=== PATIENT | male | born 1950 | race Caucasian/White ===

== ENCOUNTER 2020-10-03 10:02 | Day surgery (SDC) | payer MEDICARE, BC ==
[~2020-10-03] VITALS: Ht 172.7 cm; Wt 59.9 kg
[~2020-10-03 10:02] MED LIST: LISI20 PO; OXYACE5T PO; ROSU5 PO; SILD25T PO; WARF1 PO; XARELTO20 MG PO; [UNRECOGNIZED DRUG - OTHER]
== END 2020-10-03 13:35 | disposition home or self-care (01) ==
LOC: ORSCSDS 10:02
PROVIDERS: Orthopaedic Surgery
PROC: 0JNK0ZZ Release Left Hand Subcutaneous Tissue and Fascia, Open Approach (ICD-10-PCS; principal; 2020-10-03 11:30)
PROC: 0LN80ZZ Release Left Hand Tendon, Open Approach (ICD-10-PCS; principal; 2020-10-03 11:30)
DX: M72.0 Palmar fascial fibromatosis [Dupuytren] (principal); I10 Essential (primary) hypertension; I73.00 Raynaud's syndrome without gangrene; Z79.01 Long term (current) use of anticoagulants; Z79.899 Other long term (current) drug therapy
CPT/HCPCS: 88304; J0171; J0690; J1100; J2250; J2370; J2405; J2704; J3010; J7120

== ENCOUNTER 2021-03-09 20:14 | Observation (INO) | payer MEDICARE, BC ==
[~2021-03-09] VITALS: Ht 172.7 cm; Wt 60.1 kg
[2021-03-09] MEDS ORDERED: XARELTO20 M1 PO (20:39)
[2021-03-09] MEDS ORDERED: ASPIR 8181 M1 PO (20:40)
[2021-03-09] MEDS ORDERED: PLAVIX75 MG PO (20:40)
[2021-03-09 20:44] LABS: BASOPHILS ABSOLUTE AUTO 0.06 K/mm3 (0.00-0.23); BASOPHILS PERCENT AUTO 1 % (0-2); EOSINOPHILS ABSOLUTE AUTO 0.21 K/mm3 (0.00-0.68); EOSINOPHILS PERCENT AUTO 4 % (0-6); Hematocrit 19.2 % (37.0-53.0); IMMATURE GRAN ABSOLUTE AUTO 0.02 K/mm3 (0.00-0.10); IMMATURE GRAN PERCENT AUTO 0 % (0-1); LYMPHOCYTES ABSOLUTE AUTO 1.08 K/mm3 (0.84-5.20); LYMPHOCYTES PERCENT AUTO 22 % (21-46); MONOCYTES ABSOLUTE AUTO 0.49 K/mm3 (0.16-1.47); MONOCYTES PERCENT AUTO 10 % (4-13); Mean Corpuscular HGB 28.3 pg (26.0-34.0); Mean Corpuscular HGB Conc 31.3 g/dL (31.5-36.5); Mean Corpuscular Volume 91 fL (80-100); NEUTROPHILS PERCENT AUTO 63 % (41-73); Platelet Count 271 K/mm3 (150-400); RDW Coefficient Variation 14.1 % (11.7-14.2); RDW Standard Deviation 46.5 fL (35.1-46.3); Red Blood Cell Count 2.12 M/mm3 (4.30-5.90); White Blood Cell Count 4.96 K/mm3 (4.00-11.30)
[2021-03-09 21:03] LABS: Alanine Aminotransfer (ALT/SGP 32 U/L (12-78); Albumin, Blood 2.6 g/dL (3.4-5.0); Albumin/Globulin Ratio 0.9 (0.8-1.8); Alk Phos 43 U/L (50-136); Anion Gap 6 mmol/L (6-16); Aspartate Aminotrans (AST/SGOT 15 U/L (12-37); Bilirubin, Total 0.1 mg/dL (0.1-1.0); Blood Urea Nitrogen 32 mg/dL (8-24); Bun/Creatinine Ratio 32.1 (12.0-20.0); CO2, Blood 26 mmol/L (21-32); Calcium, Blood 7.7 mg/dL (8.5-10.1); Chloride, Blood 105 mmol/L (98-108); Glomerular Filtration Rate >60 (60-); Glucose, Blood 133 mg/dL (70-99); Potassium, Blood 3.6 mmol/L (3.5-5.5); Sodium, Blood 137 mmol/L (136-145); Total Protein, Blood 5.6 g/dL (6.4-8.2); Troponin I <0.015 ng/mL (0.000-0.040)
--- NOTE | 2021-03-10 05:32 | NUR ---
SUMMARY PT ARRIVED TO FLOOR IN NO DISTRESS. PT WAS RECIEVING BLOOD WHEN HE ARRIVED TO ROOM. PT DENIES DIZZINESS OR WEAKNESS. PT RECIEVED SECOND UNIT OF BLOOD W/ OUT ISSUE. PT CURRENTLY SLEEPING IN NO DISTRESS.
[2021-03-10 06:10] LABS: BASOPHILS ABSOLUTE AUTO 0.08 K/mm3 (0.00-0.23); BASOPHILS PERCENT AUTO 1 % (0-2); EOSINOPHILS ABSOLUTE AUTO 0.26 K/mm3 (0.00-0.68); EOSINOPHILS PERCENT AUTO 4 % (0-6); Hematocrit 26.1 % (37.0-53.0); Hemoglobin 8.5 g/dL (13.5-17.5); IMMATURE GRAN ABSOLUTE AUTO 0.03 K/mm3 (0.00-0.10); IMMATURE GRAN PERCENT AUTO 1 % (0-1); LYMPHOCYTES ABSOLUTE AUTO 1.09 K/mm3 (0.84-5.20); LYMPHOCYTES PERCENT AUTO 17 % (21-46); MONOCYTES ABSOLUTE AUTO 0.55 K/mm3 (0.16-1.47); MONOCYTES PERCENT AUTO 8 % (4-13); Mean Corpuscular HGB Conc 32.6 g/dL (31.5-36.5); Mean Corpuscular Volume 89 fL (80-100); Mean Platelet Volume 9.3 fL (9.1-12.4); NEUTROPHILS ABSOLUTE AUTO 4.61 K/mm3 (1.96-9.15); NEUTROPHILS PERCENT AUTO 70 % (41-73); Platelet Count 260 K/mm3 (150-400); RDW Coefficient Variation 14.1 % (11.7-14.2); RDW Standard Deviation 46.2 fL (35.1-46.3); Red Blood Cell Count 2.93 M/mm3 (4.30-5.90); White Blood Cell Count 6.62 K/mm3 (4.00-11.30)
[2021-03-10 06:25] LABS: Anion Gap 4 mmol/L (6-16); Blood Urea Nitrogen 24 mg/dL (8-24); Bun/Creatinine Ratio 23.1 (12.0-20.0); CO2, Blood 25 mmol/L (21-32); Calcium, Blood 7.8 mg/dL (8.5-10.1); Chloride, Blood 110 mmol/L (98-108); Creatinine, Blood 1.04 mg/dL (0.60-1.20); Glomerular Filtration Rate >60 (60-); Glucose, Blood 107 mg/dL (70-99); Potassium, Blood 4.2 mmol/L (3.5-5.5); Sodium, Blood 139 mmol/L (136-145)
--- NOTE | 2021-03-10 14:57 | NUR ---
ADMIT: 03/09/21 DISCHARGE: TBD DX: GI Hemorrhage CC: TwanChirag LeblancRESIDENCE: Home - [id number] [place] [id number]: None listed on HIPAADX: See listDME: NoneCCM: None HOME HEALTH: None Update 03/10/21: Pt. scheduled for hospital F/U appointment on 03/17/21. Per chart review with Dr. Yoon, pt. likely to discharge within the next 24-48 hours.
[2021-03-10 15:42] LABS: BASOPHILS ABSOLUTE AUTO 0.06 K/mm3 (0.00-0.23); BASOPHILS PERCENT AUTO 1 % (0-2); EOSINOPHILS ABSOLUTE AUTO 0.24 K/mm3 (0.00-0.68); EOSINOPHILS PERCENT AUTO 4 % (0-6); Hematocrit 28.4 % (37.0-53.0); Hemoglobin 9.2 g/dL (13.5-17.5); IMMATURE GRAN ABSOLUTE AUTO 0.03 K/mm3 (0.00-0.10); IMMATURE GRAN PERCENT AUTO 1 % (0-1); LYMPHOCYTES ABSOLUTE AUTO 1.07 K/mm3 (0.84-5.20); LYMPHOCYTES PERCENT AUTO 17 % (21-46); MONOCYTES ABSOLUTE AUTO 0.51 K/mm3 (0.16-1.47); MONOCYTES PERCENT AUTO 8 % (4-13); Mean Corpuscular HGB 28.8 pg (26.0-34.0); Mean Corpuscular HGB Conc 32.4 g/dL (31.5-36.5); Mean Corpuscular Volume 89 fL (80-100); Mean Platelet Volume 9.3 fL (9.1-12.4); NEUTROPHILS ABSOLUTE AUTO 4.29 K/mm3 (1.96-9.15); NEUTROPHILS PERCENT AUTO 69 % (41-73); Platelet Count 282 K/mm3 (150-400); RDW Coefficient Variation 14.6 % (11.7-14.2); RDW Standard Deviation 46.7 fL (35.1-46.3)
--- NOTE | 2021-03-10 19:43 | NUR ---
a+o, no s/sx of gi bleed, no bloody stool during shift, call light in reach, diet changed to full liquids at the end of shift, bsr shared with noc nurse and pt, iv flushed and locked during shift report
--- NOTE | 2021-03-11 04:59 | NUR ---
SHIFT SUMMARY ASSUMED CARE OF PT AT 1900. PT IS A/OX4. HEART SOUNDS REGULAR, LUNG SOUNDS CLEAR. PT HAS NO NEW COMPLAINTS. PT USED URINAL T/O THE NIGHT. CALL LIGHT IN REACH, BED IN LOWEST POSTITION.
[2021-03-11 09:13] LABS: BASOPHILS ABSOLUTE AUTO 0.07 K/mm3 (0.00-0.23); BASOPHILS PERCENT AUTO 1 % (0-2); EOSINOPHILS ABSOLUTE AUTO 0.32 K/mm3 (0.00-0.68); EOSINOPHILS PERCENT AUTO 5 % (0-6); Hematocrit 28.9 % (37.0-53.0); Hemoglobin 9.4 g/dL (13.5-17.5); IMMATURE GRAN ABSOLUTE AUTO 0.02 K/mm3 (0.00-0.10); IMMATURE GRAN PERCENT AUTO 0 % (0-1); LYMPHOCYTES ABSOLUTE AUTO 1.08 K/mm3 (0.84-5.20); LYMPHOCYTES PERCENT AUTO 18 % (21-46); MONOCYTES PERCENT AUTO 7 % (4-13); Mean Corpuscular HGB Conc 32.5 g/dL (31.5-36.5); Mean Corpuscular Volume 89 fL (80-100); Mean Platelet Volume 9.1 fL (9.1-12.4); NEUTROPHILS ABSOLUTE AUTO 4.27 K/mm3 (1.96-9.15); NEUTROPHILS PERCENT AUTO 69 % (41-73); Platelet Count 265 K/mm3 (150-400); RDW Coefficient Variation 14.4 % (11.7-14.2); RDW Standard Deviation 46.6 fL (35.1-46.3); Red Blood Cell Count 3.24 M/mm3 (4.30-5.90); White Blood Cell Count 6.16 K/mm3 (4.00-11.30)
[2021-03-11 09:25] LABS: Anion Gap 6 mmol/L (6-16); Blood Urea Nitrogen 10 mg/dL (8-24); Bun/Creatinine Ratio 9.8 (12.0-20.0); CO2, Blood 25 mmol/L (21-32); Calcium, Blood 8.1 mg/dL (8.5-10.1); Chloride, Blood 107 mmol/L (98-108); Creatinine, Blood 1.02 mg/dL (0.60-1.20); Glomerular Filtration Rate >60 (60-); Glucose, Blood 180 mg/dL (70-99); Potassium, Blood 3.8 mmol/L (3.5-5.5); Sodium, Blood 138 mmol/L (136-145)
[2021-03-11] MEDS ORDERED: PANT40 PO (12:34)
--- NOTE | 2021-03-11 13:18 | NUR ---
eager to go home, blood tests have been positive, consulted and said if pt was safe to go home (labs good, able to walk without being dizzy and the family was supportive he would consider releasing pt, conditions met and pt is awaiting family to arrive to transport him home, will continue to monitor and treat
--- NOTE | 2021-03-11 16:49 | NUR ---
discharge home a+o, left in wc pushed by staff, family met at door and staff assisted into family car, removed iv with no s/sx of infection or infiltration, reviewed current mediations, follow up appointments
== END 2021-03-11 13:42 | disposition home or self-care (01) ==
LOC: ER 20:14 → MEDS 20:15
PROVIDERS: Internal Medicine; Student in an Organized Health Care Education/Training Program; ADMIT Internal Medicine
DX: D62 Acute posthemorrhagic anemia (principal); K92.2 Gastrointestinal hemorrhage, unspecified; S01.111A Laceration without foreign body of right eyelid and periocular area, initial encounter; X58.XXXA Exposure to other specified factors, initial encounter; D68.51 Activated protein C resistance; I10 Essential (primary) hypertension; E78.5 Hyperlipidemia, unspecified; N52.9 Male erectile dysfunction, unspecified; Z95.828 Presence of other vascular implants and grafts; Z79.01 Long term (current) use of anticoagulants; Z79.02 Long term (current) use of antithrombotics/antiplatelets; Z87.891 Personal history of nicotine dependence; Z86.711 Personal history of pulmonary embolism; Z86.718 Personal history of other venous thrombosis and embolism; Z88.8 Allergy status to other drugs, medicaments and biological substances
CPT/HCPCS: 36415; 36430; 70450; 71046; 80048; 80053; 82272; 84484; 85025; 86850; 86900; 86901; 86923; 90471; 90714; 93005; 93010; 96365; 96376; 99285-25; A9270; C9113; G0378; J7030; J7120; P9016

== ENCOUNTER 2021-03-18 13:32 | Day surgery (SDC) | payer MEDICARE, BC ==
[2021-03-17 11:13] LABS: Hematocrit 23.8 % (37.0-53.0); Hemoglobin 7.5 g/dL (13.5-17.5)
[2021-03-17 13:09] LABS: Ferritin, Serum 10 ng/mL (26-388); Iron Serum 20 ug/dL (65-175); Percent Saturation 4.7 % (20.0-50.0); Prostate Specific Antigen 0.229 ng/mL (0.000-4.000); Total Iron Binding Capacity 425 ug/dL (250-450)
[~2021-03-18 13:32] MED LIST changes: +ASPIR 8181 M1 PO; +PANT40 PO; +PLAVIX75 MG PO; +XARELTO20 M1 PO
[2021-03-18] MEDS ORDERED: ELIQUIS5 M2 PO (16:52)
[2021-03-18] MEDS ORDERED: FERROUS SULFAT325 M3 PO (16:53)
[2021-03-18] MEDS ORDERED: IMIQUIMOD1 EACH TOP (16:54)
== END 2021-03-18 15:40 | disposition home or self-care (01) ==
LOC: ATC 13:32
PROVIDERS: Physician Assistant
DX: D50.0 Iron deficiency anemia secondary to blood loss (chronic) (principal); R55 Syncope and collapse; I73.9 Peripheral vascular disease, unspecified; I10 Essential (primary) hypertension; Z12.5 Encounter for screening for malignant neoplasm of prostate; Z88.8 Allergy status to other drugs, medicaments and biological substances; Z83.2 Family history of diseases of the blood and blood-forming organs and certain disorders involving the immune mechanism; Z86.718 Personal history of other venous thrombosis and embolism; Z79.4 Long term (current) use of insulin; Z87.891 Personal history of nicotine dependence
CPT/HCPCS: 36415; 82728; 83540; 83550; 85014; 85018; 86850; 86900; 86901; 86923; G0103; J7050; P9016

== ENCOUNTER 2021-07-05 10:28 | Day surgery (SDC) | payer MEDICARE, BC ==
[~2021-07-05] VITALS: Ht 172.7 cm; Wt 61.8 kg
[~2021-07-05 10:28] MED LIST changes: +ELIQUIS5 M2 PO; +FERROUS SULFAT325 M3 PO; +IMIQUIMOD1 EACH TOP
[2021-07-05] MEDS ORDERED: Lisinopril2.5 MG (10:45)
[2021-07-05] MEDS ORDERED: ELIQUIS5 M2 (10:45)
== END 2021-07-05 12:00 | disposition home or self-care (01) ==
LOC: ORSCSDS 10:28
PROVIDERS: Internal Medicine Gastroenterology
PROC: 0DBP8ZX Excision of Rectum, Via Natural or Artificial Opening Endoscopic, Diagnostic (ICD-10-PCS; principal; 2021-07-05 11:45)
DX: Z12.11 Encounter for screening for malignant neoplasm of colon (principal); Z86.010 Personal history of colon polyps; D12.8 Benign neoplasm of rectum; K64.4 Residual hemorrhoidal skin tags; K57.30 Diverticulosis of large intestine without perforation or abscess without bleeding; K64.8 Other hemorrhoids; Z79.01 Long term (current) use of anticoagulants; Z79.899 Other long term (current) drug therapy
CPT/HCPCS: 88305; J2704; J7120

== ENCOUNTER 2021-07-14 13:33 | Day surgery (SDC) | payer MEDICARE, BC ==
[~2021-07-14] VITALS: Ht 172.7 cm; Wt 62.4 kg
[~2021-07-14 13:33] MED LIST changes: +ELIQUIS5 M2; +Lisinopril2.5 MG
--- NOTE | 2021-07-14 14:24 | NUR ---
07/14/21 1424 Sylvia Choi UNSUCCESSFUL ATTEMPT IN RIGHT FOREARM WITH 20G IV. SUCCESSFUL ATTEMPT IN RIGHT FOREARM WITH 20G.
== END 2021-07-14 15:06 | disposition home or self-care (01) ==
LOC: ORSCSDS 13:33
PROVIDERS: Internal Medicine Gastroenterology
PROC: 0DJ08ZZ Inspection of Upper Intestinal Tract, Via Natural or Artificial Opening Endoscopic (ICD-10-PCS; principal; 2021-07-14 14:45)
DX: D64.9 Anemia, unspecified (principal); I26.99 Other pulmonary embolism without acute cor pulmonale; Z79.01 Long term (current) use of anticoagulants; Z79.899 Other long term (current) drug therapy
CPT/HCPCS: J2704; J7120

== ENCOUNTER 2021-10-23 10:50 | Day surgery (SDC) | payer MEDICARE, BC ==
[~2021-10-23] VITALS: Ht 172.7 cm; Wt 62.8 kg
[~2021-10-23 10:50] MED LIST changes: -Lisinopril2.5 MG; +Lisinopril2.5 MG PO; +SILD50TA
--- NOTE | 2021-10-23 14:01 | NUR ---
10/23/21 1401 Leandra Duque FRIEND, YADI, CALLED TO PROVIDE RIDE HOME.
== END 2021-10-23 14:05 | disposition home or self-care (01) ==
LOC: ORSCSDS 10:50
PROVIDERS: Orthopaedic Surgery
PROC: 0LN70ZZ Release Right Hand Tendon, Open Approach (ICD-10-PCS; principal; 2021-10-23 12:30)
PROC: 0JNJ0ZZ Release Right Hand Subcutaneous Tissue and Fascia, Open Approach (ICD-10-PCS; principal; 2021-10-23 12:30)
DX: M72.0 Palmar fascial fibromatosis [Dupuytren] (principal); I10 Essential (primary) hypertension; I25.10 Atherosclerotic heart disease of native coronary artery without angina pectoris; I25.2 Old myocardial infarction; E78.5 Hyperlipidemia, unspecified; Z79.01 Long term (current) use of anticoagulants; J44.9 Chronic obstructive pulmonary disease, unspecified; Z79.899 Other long term (current) drug therapy
CPT/HCPCS: 88304; J0171; J0690; J1100; J2405; J2704; J3010; J7120

== ENCOUNTER 2023-02-11 06:56 | Day surgery (SDC) | payer MEDICARE, BC ==
[2023-02-11] VITALS (10 sets, daily range): BP systolic 129–189; BP diastolic 58–115
[~2023-02-11] VITALS: Ht 172.7 cm; Wt 62.0 kg
--- NOTE | 2023-02-11 07:46 | NUR ---
22 G IV PLACED BY TELLO LOPZE PER PROTOCOL TO LEFT WRIST SECURED WITH CLEAR DRESSING.
--- NOTE | 2023-02-11 09:51 | NUR ---
PT ARRIVED BACK TO RECOVERY ROOM IN [facility]. RIGHT RADIAL TR BAND SITE SOFT NON-TENDER WITH NO HEMATOMA, NO PULSATILE BLEEDING AND WRIST BOARD IN PLACE. PT DENIES CHEST PAIN. ALL LIGHT IN REACH.
--- NOTE | 2023-02-11 10:19 | NUR ---
ASSUMED CARE OF PATIENT FROM TE[facility] YOUSSEF. CHECKED TR BAND AND NOTED A SMALL HEMATOMA. MANUAL PRESSURE HELD FOR 10 MINUTES AND REPOSITIONED TR BAND AND REPLACED 10 ML OF AIR. PLEATH GOOD. NO NUMBNESS OR TINGLING NOTED FROM [place] PATIENT. TEACHING PERFORMED AT THE BEDSIDE.
--- NOTE | 2023-02-11 10:57 | NUR ---
STARTED REMOVING AIR FROM THE TR BAND.
--- NOTE | 2023-02-11 11:20 | NUR ---
TR BAND OFF, SITE CLEANED AND CLOTH DOT APPLIED. WHITE BOARD REAPPLIED. NO BLEEDING NO HEMATOMA NOTED. PATIENT OFF MONITOR AND DRESSED. ALL BELONGINGS GATHERED. PATIENT CALLED AND SHE IS ON HER WAY.
--- NOTE | 2023-02-11 11:42 | NUR ---
REVIEWED DISCHARGE INSTRUCTIONS. CD MADE. NO FURTHER QUESTIONS FROM THE PATIENT. DR. LANDERS CAME BY ADN VISUALIZED THE RIGHT RADIAL SITE AND SPOKE BRIEFLY WITH THE PATIENT. PATIENT DISCHARGED HOME AMBULATORY WITH [facility].
== END 2023-02-11 12:00 | disposition home or self-care (01) ==
LOC: MHTC 06:56
DX: I35.0 Nonrheumatic aortic (valve) stenosis (principal); I25.10 Atherosclerotic heart disease of native coronary artery without angina pectoris; I10 Essential (primary) hypertension; Z79.82 Long term (current) use of aspirin; Z88.8 Allergy status to other drugs, medicaments and biological substances; Z87.891 Personal history of nicotine dependence
CPT/HCPCS: 76937; 93454; 99152; 99153; C1769; C1887; C1894; J0583; J1644; J2250; J3010; J7030; J7050; Q9967

== ENCOUNTER → 2025-06-24 | Outpatient (CLI) | payer MEDICARE, BC | LOC: LAB SHORT 14:48 → LAB 14:48 | DX: L08.0 Pyoderma (principal) | CPT/HCPCS: 87070 ==